=== PATIENT | male | born 1980 | race Caucasian/White ===

== ENCOUNTER 2017-12-18 04:55 | Emergency (ER) | payer OTHER ==
[~2017-12-18] VITALS: Ht 180.3 cm; Wt 127.0 kg
[~2017-12-18 04:55] MED LIST: NOHOMEMEDICATIONS
[2017-12-18] MEDS ORDERED: LOSARTAN POTASS50 MG PO (05:10)
[2017-12-18] MEDS ORDERED: LIPITOR 20 MG T20 M1 PO (05:10)
[2017-12-18] MEDS ORDERED: IBUPROFEN 800800 MG PO (05:40)
[2017-12-18] MEDS ORDERED: HYDROCODON-ACE1 EAC7 PO (05:40)
[2017-12-18 05:50] VITALS: BP 161/90
== END 2017-12-18 05:50 | disposition home or self-care (01) ==
LOC: M.ERS 04:55
DX: S93.691A Other sprain of right foot, initial encounter (principal); I10 Essential (primary) hypertension; E78.00 Pure hypercholesterolemia, unspecified; F17.210 Nicotine dependence, cigarettes, uncomplicated; X50.9XXA Other and unspecified overexertion or strenuous movements or postures, initial encounter; Y93.89 Activity, other specified; Y92.89 Other specified places as the place of occurrence of the external cause; Y99.8 Other external cause status